=== PATIENT | male | born 1995 | race Caucasian/White ===

== ENCOUNTER 2023-11-22 11:16 | Emergency (ER) | payer OTHER, SELFPAY ==
[2023-11-22] VITALS (10 sets, daily range): BP systolic 129–159; BP diastolic 60–113; PULSE 101–125; RESP 12–24; TEMP 37.7; O2SAT 96–100; BMI 30.5
--- NOTE | 2023-11-22 11:37 | DI.RAD.S_ITS ---
PROCEDURE: XR CHEST 1V INDICATIONS: Shortness of breath TECHNIQUE: One view of the chest was acquired. COMPARISON: None. FINDINGS: Surgical changes and devices: None. Lungs and pleura: Moderate size airspace opacity in left lower lung field is seen extending to left infrahilar region. Right lung is clear. No pleural effusions or pneumothorax. Mediastinum: Mediastinal contours appear normal. Heart size is normal. Bones and chest wall: No suspicious bony lesions. Overlying soft tissues appear unremarkable. IMPRESSION: Moderate size left lower lobe infiltrate. No pleural effusion or pneumothorax. Dictated by: Rajinder Chan M.D. on 11/22/2023 at 12:18 Approved by: Rajinder Chan M.D. on 11/22/2023 at 12:19
[2023-11-22 12:09] LABS: Add Manual Diff / Slide Review NO; Basophils Absolute Auto 0 /uL (0-100); Basophils Percent Auto 0.5 % (0-2); Eosinophils Absolute Auto 100 /uL (0-450); Eosinophils Percent Auto 1.5 % (2-4); Hematocrit 44.2 % (41-53); Hemoglobin 15.2 g/dL (13.5-17.5); Lymphocytes Absolute Auto 1700 /uL (1100-4500); Lymphocytes Percent Auto 22.3 % (25-40); Mean Corpuscular HGB Conc 34.3 % (30-36); Mean Corpuscular Hemoglobin 28.1 PG (26-34); Mean Corpuscular Volume 81.9 fL (80-100); Monocytes Absolute Auto 1000 /uL (0-900); Monocytes Percent Auto 13.3 % (3-14); Neutrophils Absolute Auto 4800 /uL (1500-7000); Neutrophils Percent Auto 62.4 % (50-75); Platelet Count 206 X10^3/uL (150-400); Red Cell Distribution Width 14.3 % (11.6-14.8); White Blood Cell Count 7.6 X10^3/uL (4.5-11.0)
[2023-11-22 12:11] LABS: Alanine Aminotransferase 43 IU/L (<50); Albumin 4.9 g/dL (3.5-5.0); Albumin Globulin Ratio 1.5 (1.0-2.8); Alkaline Phosphatase 72 U/L (38-126); Aspartate Aminotransferase 37 IU/L (17-59); BUN Creatinine Ratio 12.9 (6-22); Bilirubin Total 0.7 mg/dL (0.2-1.3); Blood Urea Nitrogen 12 mg/dL (9-20); Calcium 9.5 mg/dL (8.4-10.2); Carbon Dioxide 20 mmol/L (22-32); Chloride 107 mmol/L (98-107); Estimated Glomerular Filt Rate > 60 mL/min (>60); Globulin 3.3 g/dL (1.7-4.1); Glucose 120 mg/dL (70-100); HEMOLYSIS < 15 (0-50); Potassium 3.7 mmol/L (3.4-5.1); Sodium 138 mmol/L (137-145); Total Protein 8.2 g/dL (6.3-8.2)
[2023-11-22 12:23] LABS: NT-proBNP (BNP-Adult 18+) 55 pg/mL (<125); Troponin I 0.084 ng/mL (0.01-0.034)
[2023-11-22 12:35] LABS: Influenza A - CEPHEID Flu A NEGATIVE (NEGATIVE); Influenza B - CEPHEID Flu B NEGATIVE (NEGATIVE); Respiratory Syncytial Virus Negative (Negative)
--- NOTE | 2023-11-22 12:46 | EKG_ITS ---
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 Electronically Signed On 11-25-2023 9:15:08 PDT by Giorgio Peralta
[2023-11-22 12:52] LABS: COVID-19 CEPHEID 4-PLEX PCR Negative (Negative)
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
[2023-11-22 13:12] LABS: D Dimer 656 ng/ml (<500)
[2023-11-22] MEDS: ALBUTEROL 2.5 MG/3 ML NEB (ADULT) INH (13:18)
[2023-11-22] MEDS: SODIUM CHLORIDE 0.9% 1,000 ML 1000 ML IV (13:19)
[2023-11-22] MEDS: KETOROLAC 30 MG/ML VIAL 15 MG IV (13:19)
--- NOTE | 2023-11-22 13:36 | EKG_ITS ---
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
[2023-11-22 14:02] LABS: Creatine Kinase 150 U/L (55-170)
[2023-11-22 14:16] LABS: Troponin I 0.081 ng/mL (0.01-0.034)
[2023-11-22 15:29] LABS: C-Reactive Protein Quant 4.9 mg/dL (<1.0)
[2023-11-22 15:37] LABS: Erythrocyte Sedimentation Rate 11 MM/HR (0-15)
== END 2023-11-22 15:28 | disposition home or self-care (01) ==
PROVIDERS: Emergency Provider Emergency Medicine
DX: J18.9 Pneumonia, unspecified organism (principal); R07.89 Other chest pain; R06.02 Shortness of breath; Z11.52 Encounter for screening for COVID-19
CPT/HCPCS: 0241U; 36415; 71045; 80053; 82550; 83605; 83880; 84484; 85025; 85379; 85610; 85651; 86140; 87040; 93005; 94640; 96361; 96374; 99284; J1885; J7613

== ENCOUNTER 2023-11-24 07:48 | Emergency (ER) | payer OTHER, SELFPAY ==
[2023-11-24] VITALS (8 sets, daily range): BP systolic 116–149; BP diastolic 63–82; PULSE 82–113; RESP 16–18; TEMP 36.3; O2SAT 96–100; BMI 29.7
--- NOTE | 2023-11-24 08:06 | DI.RAD.S_ITS ---
PROCEDURE: XR CHEST 1V INDICATIONS: chest pain TECHNIQUE: One view of the chest was acquired. COMPARISON: [facility], CR, XR CHEST 1V, 11/22/2023, 12:02. FINDINGS: Surgical changes and devices: None. Lungs and pleura: Focal opacity in the left lung base decreased in size without resolution. No pleural effusions or pneumothorax. Mediastinum: Mediastinal contours appear normal. Heart size is normal. Bones and chest wall: No suspicious bony lesions. Overlying soft tissues appear unremarkable. IMPRESSION: Left lower lobe pneumonia with decreased size of lung infiltrate. Dictated by: Janeen Armendariz MD, PhD on 11/24/2023 at 9:26 Approved by: Janeen Armendariz MD, PhD on 11/24/2023 at 9:27
--- NOTE | 2023-11-24 08:15 | ED_ITS ---
HPI - Chest Pain General Chief Complaint: Chest Pain Stated Complaint: says something wrong w his heart Time Seen by Provider: 11/24/23 08:14 History of Present Illness HPI narrative: 28-year-old male presents for persistent chest pain and heaviness. Seen 2 days previously for body aches, shortness of breath, chest pain. Patient diagnosed with left-sided infiltrate. Also found mildly elevated troponins, thought to be secondary to myocarditis. Patient states that he was called yesterday by the ER physician to return to the emergency department, but he felt like he was improving yesterday and did not come back in. Today he states he feels worse than when he came in the 1st time and decided to come back in for evaluation. Reports persistently elevated heart rate at home between 110-130 beats per minute. Related Data Previous Rx's Medication Instructions Recorded albuterol sulfate 90 mcg/actuation 2 puff inhalation Q4-6H PRN 11/22/23 aerosol inhaler shortness of breath or wheezing #8.5 grams amoxicillin 500 mg capsule 1,000 mg (2 x 500 mg) PO TID 5 11/22/23 days #30 caps doxycycline hyclate 100 mg capsule 100 mg PO BID #10 caps 11/22/23 colchicine 0.6 mg tablet 0.6 mg PO BID 3 months #180 tabs 11/24/23 Allergies Allergy/AdvReac Type Severity Reaction Status Date / Time No Known Drug Allergies Allergy Verified 11/22/23 11:37 Patient History Social History Smoking Status: Former smoker Smoking Status: Former smoker Substance Use Type: does not use Exam Initial Vital Signs Initial Vital Signs: Vital Signs Temperature 97.4 F L 11/24/23 08:02 Pulse Rate 103 H 11/24/23 08:02 Respiratory Rate 18 11/24/23 08:02 Blood Pressure 149/74 H 11/24/23 08:02 Pulse Oximetry 100 11/24/23 08:02 Oxygen Delivery Method Room Air 11/24/23 08:02 Const: Awake, alert, ill-appearing, nontoxic Cardiac: Tachycardia, regular rhythm RESP: unlabored, speaking in complete sentences without dyspnea, no wheezing MSK: Atraumatic, full range of motion, pulses equal, no edema Skin: Warm, Dry, intact, no rashes Neuro: AO x3, CN II-XII grossly intact, moves all extremities Course Orders Ordered: Discontinued Medications Aspirin (Aspirin 81 Mg Chew Tab) 324 mg PO NOW ONE Stop: 11/24/23 08:07 Last Admin: 11/24/23 08:48 Dose: 324 mg Documented By: Sodium Chloride (Normal Saline 0.9%) 1,000 mls @ 1,000 mls/hr IV BOLUS ONE Stop: 11/24/23 09:26 Last Infusion: 11/24/23 11:06 Dose: Infused Documented By: Admin: 11/24/23 08:48 Dose: 1,000 mls/hr Documented By: Ketorolac Tromethamine (Ketorolac 30 Mg/Ml Vial) 15 mg IV NOW ONE Stop: 11/24/23 08:28 Last Admin: 11/24/23 08:48 Dose: 15 mg Documented By: Vital Signs Vital signs: Vital Signs - 8 hr 11/24/23 08:02 11/24/23 08:22 11/24/23 08:38 Temperature 97.4 F L Pulse Rate 103 H 113 H 103 H Respiratory Rate 18 Blood Pressure 149/74 H Pulse Oximetry 100 99 99 Oxygen Delivery Method Room Air 11/24/23 08:39 11/24/23 08:39 11/24/23 09:00 Temperature Pulse Rate 103 H 97 H Respiratory Rate Blood Pressure 120/82 Pulse Oximetry 99 97 Oxygen Delivery Method Room Air Room Air 11/24/23 09:00 11/24/23 10:30 11/24/23 11:30 Temperature Pulse Rate 82 91 H Respiratory Rate 18 16 Blood Pressure 121/63 120/74 135/70 Pulse Oximetry 96 Oxygen Delivery Method Room Air MDM - Chest Pain Differential Diagnosis Differential diagnosis: Likely fracture of rib, pneumothorax and stable angina Lab Data 11/24/23 08:10 11/24/23 08:10 Labs: Lab Results 11/24/23 Range/Units 08:10 WBC 7.2 (4.5-11.0) X10^3/uL RBC 5.06 (4.5-5.9) X10^6/uL Hgb 14.0 (13.5-17.5) g/dL Hct 41.9 (41-53) % MCV 82.9 (80-100) fL MCH 27.7 (26-34) PG MCHC 33.5 (30-36) % RDW 14.1 (11.6-14.8) % Plt Count 205 (150-400) X10^3/uL Neut % (Auto) 45.2 L (50-75) % Lymph % (Auto) 32.5 (25-40) % [place] % (Auto) 17.7 H (3-14) % Eos % (Auto) 4.2 H (2-4) % Baso % (Auto) 0.4 (0-2) % Neut # (Auto) 3300 (5203-1732) /uL Lymph # (Auto) 2300 (1594-3013) /uL [place] # (Auto) 1300 H (0-900) /uL Eos # (Auto) 300 (0-450) /uL Baso # (Auto) 0 (0-100) /uL PT 11.4 (9.4-12.5) SECONDS INR 1.0 (0.9-1.3) APTT 37 H (25.1-36.5) SECONDS Sodium 137 (137-145) mmol/L Potassium 4.3 (3.4-5.1) mmol/L Chloride 105 (98-107) mmol/L Carbon Dioxide 24 (22-32) mmol/L BUN 11 (9-20) mg/dL Creatinine 0.89 (0.66-1.25) mg/dL Estimated GFR > 60 (>60) mL/min BUN/Creatinine Ratio 12.4 (6-22) Glucose 125 H (70-100) mg/dL Calcium 9.5 (8.4-10.2) mg/dL Magnesium 2.2 (1.6-2.3) mg/dL Total Bilirubin 0.8 (0.2-1.3) mg/dL AST 43 (17-59) IU/L ALT 42 (<50) IU/L Alkaline Phosphatase 67 (38-126) U/L Total Creatine Kinase 462 H D (55-170) U/L Troponin I 1.490 H* (0.01-0.034) ng/mL NT-Pro-B Natriuret Pep 184 H (<125) pg/mL Total Protein 7.9 (6.3-8.2) g/dL Albumin 4.5 (3.5-5.0) g/dL Globulin 3.4 (1.7-4.1) g/dL Albumin/Globulin Ratio 1.3 (1.0-2.8) Lipase 43 (23-300) U/L Imaging Data Chest x-ray: Radiologist's Impression: PROCEDURE: XR CHEST 1V INDICATIONS: chest pain TECHNIQUE: One view of the chest was acquired. COMPARISON: [facility], , XR CHEST 1V, 11/22/2023, 12:02. FINDINGS: Surgical changes and devices: None. Lungs and pleura: Focal opacity in the left lung base decreased in size without resolution. No pleural effusions or pneumothorax. Mediastinum: Mediastinal contours appear normal. Heart size is normal. Bones and chest wall: No suspicious bony lesions. Overlying soft tissues appear unremarkable. IMPRESSION: Left lower lobe pneumonia with decreased size of lung infiltrate. Dictated by: Janeen Armendariz MD, PhD on 11/24/2023 at 9:26 Approved by: Janeen Armendariz MD, PhD on 11/24/2023 at 9:27 CT scan - chest: Radiologist's Impression: PROCEDURE: CT ANGIO CHEST PE PROTOCOL INDICATIONS: ELEVATED DIMER, SOB, L INFILTRATE TECHNIQUE: After the administration of intravenous contrast, 2 mm thick sections acquired from the pulmonary apices to the posterior costophrenic angles. 3-dimensional maximum intensity projection (MIP) coronal and sagittal reformats were then acquired through the thorax. For radiation dose reduction, the following was used: automated exposure control, adjustment of mA and/or kV according to patient size. COMPARISON: [facility], XR CHEST 1V, 11/24/2023, 8:15. [facility], XR CHEST 1V, 11/22/2023, 12:02. FINDINGS: Image quality: Diagnostic. Pulmonary arteries: Pulmonary arteries are normal in size, and demonstrate no intraluminal filling defects to suggest central pulmonary embolism. Lower Neck: No enlarged lymph nodes. Thyroid: No thyroid nodules which require sonographic follow up, per consensus guidelines. Axillae: No enlarged lymph nodes. Chest Wall: Unremarkable. Bones: Unremarkable. Lungs and Pleura: No pneumothorax or pleural effusions. Patchy consolidation in the left lower lobe. Heart: Heart size is normal. No pericardial effusion. Thoracic Vessels: No aortic aneurysm. Mediastinum and [place]: No enlarged lymph nodes. Esophagus: No wall thickening. No hiatal hernia. Upper Abdomen: Visualized upper abdomen solid organs and bowel loops appear normal. IMPRESSION: Pulmonary embolus or aortic dissection. Left lower lobe pneumonia. Dictated by: Janeen Armendariz MD, PhD on 11/24/2023 at 9:27 Approved by: Janeen Armendariz MD, PhD on 11/24/2023 at 9:31 US - DVT: Radiologist's Impression: [facility] : : [address] [place] [address]. : : [place] : : [id number] : : Phone: [phone] Echocardiogram Report + + :Name: CLARY EISENBERG Study Date: 11/24/2023 Height: 67 in : :[facility] ReadingLocation: Weight: 190 lb : : Gender: Male BSA: 2.0 m2 : :: 1995 Age: 28 yrs BP: 120/74 mmHg: :Reason For Study: ELEVATED TROPONINS : :Ordering Physician: KEL : :YULIET Performed By: Li King : :Referring: YULIET SIMMONS : + + Interpretation Summary The ejection fraction is estimated to be 55-60%. Diastolic parameters suggest probable normal left ventricular diastolic function and normal filling pressures. The right ventricle is normal in size and function. The right ventricular systolic pressure is estimated to be at least 21 mmHg based on an estimated right atrial pressure of 3 mm Hg. No significant valvular abnormality. Procedure: A two-dimensional transthoracic echocardiogram with color flow and Doppler was performed. The study quality was technically adequate. There is no prior echocardiogram noted for this patient. The patient was in sinus rhythm with heart rates between 77-90 bpm during the exam. Left Ventricle: The left ventricle is normal in size and wall thickness. The ejection fraction is estimated to be 55-60%. Left ventricular global longitudinal strain average is -18.7%. There are no obvious focal wall motion abnormalities noted but poor endocardial definition reduces the sensitivity for the detection of such. Diastolic parameters suggest probable normal left ventricular diastolic function and normal filling pressures. Right Ventricle: The right ventricle is normal in size and function. Atria: The left atrial size is normal. Right atrial size is normal. There is no Doppler evidence for an interatrial shunt. Mitral Valve: The mitral valve is normal in structure and function. There is trace mitral regurgitation. Aortic Valve: The aortic valve is trileaflet. The aortic valve opens well. There is no aortic valve stenosis. No aortic regurgitation is present. Tricuspid Valve: The tricuspid valve is normal in structure and function. There is trace tricuspid regurgitation. The right ventricular systolic pressure is estimated to be at least 21 mmHg based on an estimated right atrial pressure of 3 mm Hg. Pulmonic Valve: The pulmonic valve leaflets are thin and pliable; valve motion is normal. There is no pulmonic valvular regurgitation. Great Vessels: The aortic root is normal size. The dimensions of the ascending aorta are normal. The IVC is of normal diameter and collapses greater than 50% with a sniff. This suggests a low right atrial pressure of 3 mm Hg. Pericardium/ Pleura There is no pericardial effusion. There is no pleural effusion. MMode/2D Measurements & Calculations LVIDd: 5.1 cm LVOT diam: 2.2 cm LVIDs: 3.6 cm Ao root diam: 3.0 cm FS: 30.3 % asc Aorta Diam: 2.8 cm IVSd: 0.72 cm Ao Arch Diam (Prox Trans): 2.5 cm LVPWd: 0.91 cm LV adan. diameter/BSA (cm/m^2): 2.6 LV sys. diameter/BSA (cm/m^2): 1.8 LA A2 area: 15.7 cm2 RA long axis: 4.4 cm LA A4 area: 15.6 cm2 RA area: 12.7 cm2 LA length (vol): 4.8 cm RA vol: 31.4 ml LA vol: 43.1 ml RA : 15.9 ml/m2 LA vol index: 21.8 ml/m2 IVC diam: 2.0 cm RVD1 (basal): 3.3 cm RVD2 (mid): 2.9 cm TAPSE: 1.8 cm Doppler Measurements & Calculations Ao V2 max: 121.2 cm/sec LVOT Max Haroldo: 74.2 cm/sec Ao V2 mean: 86.3 cm/sec LV V1 max P.2 mmHg Ao max P.9 mmHg LV V1 VTI: 13.1 cm Ao mean P.4 mmHg BIBIANA(I,D): 2.4 cm2 Ao V2 VTI: 21.0 cm BIBIANA(V,D): 2.4 cm2 sev ratio: 0.62 BIBIANA indexed to BSA (cm^2/m^2): 1.2 MV E max haroldo: 79.6 cm/sec TR max haroldo: 209.0 cm/sec MV A max haroldo: 51.7 cm/sec TR max P.5 mmHg MV E/A: 1.5 PA V2 max: 114.6 cm/sec Med Peak E' Haroldo: 12.4 cm/sec PA V2 mean: 77.6 cm/sec E/E' med: 6.4 PA mean P.7 mmHg Lat Peak E' Haroldo: 17.1 cm/sec PA pr(Accel): 32.8 mmHg E/E' lat: 4.7 E/e' average: 5.5 MV dec time: 0.17 sec SV(LVOT): 50.9 ml Reading Physician:AM ECG Data Interpretation: Sinus tachycardia, 107 beats per minute, normal NC, no ST T wave changes, no STEMI MDM Narrative Medical decision making narrative: Patient presenting for persistent chest pain and shortness of breath. Recently diagnosed with pneumonia and borderline troponins. EKG sinus tachycardia without concerning ST T wave elevations or depressions. Patient initially tachycardic, however after receiving Toradol and IV fluids heart rate decreased to 80 beats per minute, normal sinus rhythm. Repeat labs show troponin is now 1.49, up from 0.081. Call placed to Dr. Ayers of Cardiology, who recommended NSAIDs and colchicine, as well as obtaining a echocardiogram. Patient will likely need to stay for observation to ensure that troponins are responding to NSAID treatment. Echocardiogram notified, they will be able to see the patient around 11:00 a.m.. Patient agreeable to wait for echocardiogram at this time. Echocardiogram shows no pericardial effusion, normal ejection fraction, normal wall motion. Patient's heart rate has decreased after receiving IV fluids and he was resting comfortably. We discussed case with Dr. Ayers of cardiology. She states that now that we know that patient has no pericardial effusion and normal ejection fraction he can be treated conservatively with colchicine and does not need to be admitted to the hospital. Recommended 0.6 mg of colchicine b.i.d. for 3 months. If pain is severe he may take high-dose ibuprofen, 600 mg p.o. t.i.d., however she recommends that he take a PPI with this medication. Patient informed of all lab and imaging findings as well as cardiology recommendations. Patient states that he was relieved that he was not have to stay in the hospital. He was in agreement with medication plan. He states that his pain is overall well controlled at this time. Patient counseled to return if his symptoms do not improve or worsen. Cardiology follow up recommended. Discharge Plan Departure Patient Disposition: Home Clinical Impression: Acute myopericarditis Instructions: DI for Pericarditis Activity Restrictions/Additional Instructions: Continue to take your antibiotics as prescribed. Your echocardiogram showed that you have normal heart function today, which is reassuring. You did have some elevation in your heart enzymes, likely from the inflammation and irritation. Cardiology recommends that you take colchicine twice daily for the next 3 months. This has been sent to the [facility] in [place]. If you have chest pain then it was recommended to take high-dose ibuprofen, 600 mg as needed up to 3 times daily. If you take high-dose ibuprofen please take an antacid such as omeprazole or Protonix to avoid irritating her stomach. Follow up with Cardiology. If you notice worsening shortness of breath, leg swelling, or are not improving please return to the emergency department for repeat evaluation. Prescriptions: New colchicine 0.6 mg tablet 0.6 mg PO BID 90 Days Qty: 180 0RF No Action albuterol sulfate 90 mcg/actuation HFA aerosol inhaler 2 puff INHALATION Q4-6H PRN (Reason: shortness of breath or wheezing) Qty: 8.5 0RF amoxicillin 500 mg capsule 1,000 mg PO TID 5 Days Qty: 30 0RF doxycycline hyclate 100 mg capsule 100 mg PO BID Qty: 10 0RF Stand Alone Forms: Patient Portal/API
--- NOTE | 2023-11-24 08:17 | EKG_ITS ---
[place] [address] [address] [place] [address] Test Date: 2023-11-24 Pat Name: Samuel Tirado Department: Room: Gender: Male [employer]: : 1995 Requested By: Order Number: [id number] Reading MD: Giorgio Peralta Measurements Intervals [place] Rate: 107 P: 68 FL: 154 QRS: 45 QRSD: 80 T: 60 QT: 322 QTc: 429 Interpretive Statements Sinus tachycardia Electronically Signed On 11-25-2023 16:48:54 PDT by Giorgio Peralta
[2023-11-24 08:23] LABS: Add Manual Diff / Slide Review NO; Basophils Absolute Auto 0 /uL (0-100); Basophils Percent Auto 0.4 % (0-2); Eosinophils Absolute Auto 300 /uL (0-450); Eosinophils Percent Auto 4.2 % (2-4); Hematocrit 41.9 % (41-53); Lymphocytes Absolute Auto 2300 /uL (1100-4500); Lymphocytes Percent Auto 32.5 % (25-40); Mean Corpuscular HGB Conc 33.5 % (30-36); Mean Corpuscular Hemoglobin 27.7 PG (26-34); Mean Corpuscular Volume 82.9 fL (80-100); Monocytes Absolute Auto 1300 /uL (0-900); Monocytes Percent Auto 17.7 % (3-14); Neutrophils Absolute Auto 3300 /uL (1500-7000); Neutrophils Percent Auto 45.2 % (50-75); Platelet Count 205 X10^3/uL (150-400); Red Blood Cell Count 5.06 X10^6/uL (4.5-5.9); Red Cell Distribution Width 14.1 % (11.6-14.8); White Blood Cell Count 7.2 X10^3/uL (4.5-11.0)
[2023-11-24 08:34] LABS: Prothrombin Time 11.4 SECONDS (9.4-12.5)
[2023-11-24 08:37] LABS: PTT Partial Thromboplastin Tim 37 SECONDS (25.1-36.5)
[2023-11-24 08:40] LABS: Alanine Aminotransferase 42 IU/L (<50); Albumin 4.5 g/dL (3.5-5.0); Albumin Globulin Ratio 1.3 (1.0-2.8); Alkaline Phosphatase 67 U/L (38-126); Aspartate Aminotransferase 43 IU/L (17-59); BUN Creatinine Ratio 12.4 (6-22); Bilirubin Total 0.8 mg/dL (0.2-1.3); Blood Urea Nitrogen 11 mg/dL (9-20); Calcium 9.5 mg/dL (8.4-10.2); Carbon Dioxide 24 mmol/L (22-32); Chloride 105 mmol/L (98-107); Creatine Kinase 462 U/L (55-170); Estimated Glomerular Filt Rate > 60 mL/min (>60); Globulin 3.4 g/dL (1.7-4.1); Glucose 125 mg/dL (70-100); HEMOLYSIS < 15 (0-50); Lipase 43 U/L (23-300); Magnesium 2.2 mg/dL (1.6-2.3); Potassium 4.3 mmol/L (3.4-5.1); Sodium 137 mmol/L (137-145); Total Protein 7.9 g/dL (6.3-8.2)
[2023-11-24] MEDS: SODIUM CHLORIDE 0.9% 1,000 ML 1000 ML IV (08:48)
[2023-11-24] MEDS: KETOROLAC 30 MG/ML VIAL 15 MG IV (08:48)
[2023-11-24] MEDS: ASPIRIN 81 MG CHEW TAB 324 MG PO (08:48)
[2023-11-24 08:51] LABS: NT-proBNP (BNP-Adult 18+) 184 pg/mL (<125)
--- NOTE | 2023-11-24 09:07 | DI.ECHO.S_ITS ---
[facility]+ [facility] : : [address] : : [place] : : [address] : : Phone: [phone] Echocardiogram Report + + :Name: CLARY EISENBERG Study Date: 11/24/2023 Height: 67 in : :Hospital ReadingLocation: Weight: 190 lb : : Gender: Male BSA: 2.0 m2 : :: 1995 Age: 28 yrs BP: 120/74 mmHg: :Reason For Study: ELEVATED TROPONINS : :Ordering Physician: KEL, : :JIM Performed By: Li King : :Referring: JIM BEGUM : + + Interpretation Summary The ejection fraction is estimated to be 55-60%. Diastolic parameters suggest probable normal left ventricular diastolic function and normal filling pressures. The right ventricle is normal in size and function. The right ventricular systolic pressure is estimated to be at least 21 mmHg based on an estimated right atrial pressure of 3 mm Hg. No significant valvular abnormality. Procedure: A two-dimensional transthoracic echocardiogram with color flow and Doppler was performed. The study quality was technically adequate. There is no prior echocardiogram noted for this patient. The patient was in sinus rhythm with heart rates between 77-90 bpm during the exam. Left Ventricle: The left ventricle is normal in size and wall thickness. The ejection fraction is estimated to be 55-60%. Left ventricular global longitudinal strain average is -18.7%. There are no obvious focal wall motion abnormalities noted but poor endocardial definition reduces the sensitivity for the detection of such. Diastolic parameters suggest probable normal left ventricular diastolic function and normal filling pressures. Right Ventricle: The right ventricle is normal in size and function. Atria: The left atrial size is normal. Right atrial size is normal. There is no Doppler evidence for an interatrial shunt. Mitral Valve: The mitral valve is normal in structure and function. There is trace mitral regurgitation. Aortic Valve: The aortic valve is trileaflet. The aortic valve opens well. There is no aortic valve stenosis. No aortic regurgitation is present. Tricuspid Valve: The tricuspid valve is normal in structure and function. There is trace tricuspid regurgitation. The right ventricular systolic pressure is estimated to be at least 21 mmHg based on an estimated right atrial pressure of 3 mm Hg. Pulmonic Valve: The pulmonic valve leaflets are thin and pliable; valve motion is normal. There is no pulmonic valvular regurgitation. Great Vessels: The aortic root is normal size. The dimensions of the ascending aorta are normal. The IVC is of normal diameter and collapses greater than 50% with a sniff. This suggests a low right atrial pressure of 3 mm Hg. Pericardium/ Pleura There is no pericardial effusion. There is no pleural effusion. MMode/2D Measurements & Calculations LVIDd: 5.1 cm LVOT diam: 2.2 cm LVIDs: 3.6 cm Ao root diam: 3.0 cm FS: 30.3 % asc Aorta Diam: 2.8 cm IVSd: 0.72 cm Ao Arch Diam (Prox Trans): 2.5 cm LVPWd: 0.91 cm LV adan. diameter/BSA (cm/m^2): 2.6 LV sys. diameter/BSA (cm/m^2): 1.8 LA A2 area: 15.7 cm2 RA long axis: 4.4 cm LA A4 area: 15.6 cm2 RA area: 12.7 cm2 LA length (vol): 4.8 cm RA vol: 31.4 ml LA vol: 43.1 ml RA : 15.9 ml/m2 LA vol index: 21.8 ml/m2 IVC diam: 2.0 cm RVD1 (basal): 3.3 cm RVD2 (mid): 2.9 cm TAPSE: 1.8 cm Doppler Measurements & Calculations Ao V2 max: 121.2 cm/sec LVOT Max Haroldo: 74.2 cm/sec Ao V2 mean: 86.3 cm/sec LV V1 max P.2 mmHg Ao max P.9 mmHg LV V1 VTI: 13.1 cm Ao mean P.4 mmHg BIBIANA(I,D): 2.4 cm2 Ao V2 VTI: 21.0 cm BIBIANA(V,D): 2.4 cm2 sev ratio: 0.62 BIBIANA indexed to BSA (cm^2/m^2): 1.2 MV E max haroldo: 79.6 cm/sec TR max haroldo: 209.0 cm/sec MV A max haroldo: 51.7 cm/sec TR max P.5 mmHg MV E/A: 1.5 PA V2 max: 114.6 cm/sec Med Peak E' Haroldo: 12.4 cm/sec PA V2 mean: 77.6 cm/sec E/E' med: 6.4 PA mean P.7 mmHg Lat Peak E' Haroldo: 17.1 cm/sec PA pr(Accel): 32.8 mmHg E/E' lat: 4.7 E/e' average: 5.5 MV dec time: 0.17 sec SVLVOT): 50.9 ml Reading Physician:ROSA
== END 2023-11-24 12:48 | disposition home or self-care (01) ==
PROVIDERS: Emergency Provider Emergency Medicine
DX: I30.9 Acute pericarditis, unspecified (principal); R07.9 Chest pain, unspecified; R79.89 Other specified abnormal findings of blood chemistry; R06.02 Shortness of breath
CPT/HCPCS: 36415; 71045; 71275; 80053; 82550; 83690; 83735; 83880; 84484; 85025; 85610; 85730; 93005; 93306; 96361; 96374; 99284; J1885; Q9967

== ENCOUNTER 2023-11-30 14:36 | Emergency (ER) | payer OTHER, SELFPAY ==
[2023-11-30] VITALS (14 sets, daily range): BP systolic 125–163; BP diastolic 65–83; PULSE 97–129; RESP 15–22; TEMP 36.7; O2SAT 93–99; BMI 29.7
--- NOTE | 2023-11-30 14:47 | DI.RAD.S_ITS ---
PROCEDURE: XR CHEST 2V INDICATIONS: h/o L side infiltrate, worsening. TECHNIQUE: 2 views of the chest were acquired. COMPARISON: [facility], CR, XR CHEST 1V, 11/24/2023, 8:15. FINDINGS: Surgical changes and devices: None. Lungs and pleura: Lungs are clear. No pleural effusions or pneumothorax. Mediastinum: Mediastinal contours are normal. Heart size is normal. Bones and chest wall: No suspicious bony abnormalities. Soft tissues appear unremarkable. IMPRESSION: No acute cardiopulmonary pathology. Dictated by: Rajinder Chan M.D. on 11/30/2023 at 15:06 Approved by: Rajinder Chan M.D. on 11/30/2023 at 15:08
[2023-11-30] MEDS: ALBUTEROL/IPRATROPIUM 3 ML AMPUL INH (14:51)
--- NOTE | 2023-11-30 15:00 | ED_ITS ---
HPI - SOB/Dyspnea General Chief Complaint: Shortness of Breath/Dyspnea Stated Complaint: SOB was here last week w PNA Time Seen by Provider: 11/30/23 14:55 Source: patient Mode of arrival: Ambulatory Limitations: no limitations History of Present Illness HPI Narrative: Patient is a 28-year-old male recently diagnosed with pneumonia and myocarditis. He was seen evaluated twice last week here in the ED he had CT echocardiogram and chest x-ray done. He had elevated troponins. Cardiology was consulted who recommended NSAIDs and colchicine. Patient reports he has not felt any better. He continues to have chest pain he started having some diarrhea no nausea. He continues to have a dry nonproductive cough. He thought he was getting better with antibiotics but now he has not so sure. He feels like he is got fluid on his lungs he denies any lower extremity swelling. He was shortness of breath with exertion. And orthopnea Related Data Previous Rx's Medication Instructions Recorded albuterol sulfate 90 mcg/actuation 2 puff inhalation Q4-6H PRN 11/22/23 aerosol inhaler shortness of breath or wheezing #8.5 grams doxycycline hyclate 100 mg capsule 100 mg PO BID #10 caps 11/22/23 colchicine 0.6 mg tablet 0.6 mg PO BID 3 months #180 tabs 11/24/23 Allergies Allergy/AdvReac Type Severity Reaction Status Date / Time No Known Drug Allergies Allergy Verified 11/22/23 11:37 Patient History Social History Smoking Status: Former smoker Smoking Status: Former smoker Substance Use Type: does not use Exam Initial Vital Signs Initial Vital Signs: Vital Signs Pulse Rate 107 H 11/30/23 14:42 Pulse Oximetry 98 11/30/23 14:42 GENERAL: Alert 28-year-old male appears to not feel well and in no acute distress. HEENT: Head atraumatic,EOMI, pupils reactive, face symmetric, moist mucous membranes CARDIOVASCULAR: Regular rate and rhythm without murmurs, rubs or gallops. RESPIRATORY: Coarse breath sounds bilaterally ABDOMEN: Soft, nontender. Normoactive bowel sounds all 4 quadrants. No guarding or rebound. EXTREMITIES: Normal range of motion, no clubbing or edema. Neurovascularly intact NEUROLOGICAL: Alert and oriented x4.Normal gait and speech. SKIN: Warm, dry, no laceration, no petechiae, no rashes or lesions. Course Orders Ordered: ED Orders 11/30/23 14:46 EKG-12 Lead Stat 11/30/23 14:47 XR chest 2V Stat 11/30/23 14:50 Complete Blood Count AUTO DIFF Stat Comprehensive Metabolic Panel Stat Lactate (Lactic Acid) Stat Lipase Stat Magnesium Stat NT-proBNP (BNP-Adult 18+) Stat PTT Partial Thromboplastin Bao Stat Procalcitonin Stat Prothrombin Time INR Stat Troponin & CK Cardiac Panel Stat 11/30/23 14:53 Respiratory Panel (Film Array) Stat 11/30/23 15:20 Blood Culture Stat Discontinued Medications Albuterol (Albuterol 2.5 Mg/3 Ml Neb (Adult)) 2.5 mg INH NOW ONE Stop: 11/30/23 15:35 Last Admin: 11/30/23 15:43 Dose: 2.5 mg Documented By: MARIE Albuterol/Ipratropium (Albuterol/Ipratropium 3 Ml Ampul) 3 ml INH NOW ONE Stop: 11/30/23 14:49 Last Admin: 11/30/23 14:51 Dose: 3 ml Documented By: ALENA Methylprednisolone (Methylprednisolone 125 Mg/2 Ml Vial) 125 mg IV NOW ONE Stop: 11/30/23 15:35 Last Admin: 11/30/23 15:43 Dose: 125 mg Documented By: MARIE Vital Signs Vital signs: Vital Signs - 8 hr 11/30/23 14:42 11/30/23 14:43 11/30/23 14:43 Temperature Pulse Rate 107 H 120 H Respiratory Rate Blood Pressure 160/74 H Pulse Oximetry 98 99 Oxygen Delivery Method 11/30/23 14:45 11/30/23 14:45 11/30/23 14:52 Temperature 98.1 F Pulse Rate 108 H 109 H 129 H Respiratory Rate 22 20 Blood Pressure 160/74 H Pulse Oximetry 97 99 98 Oxygen Delivery Method Room Air Room Air 11/30/23 15:00 11/30/23 15:01 11/30/23 15:01 Temperature Pulse Rate 115 H 108 H Respiratory Rate 21 19 Blood Pressure 163/83 H Pulse Oximetry 99 99 Oxygen Delivery Method 11/30/23 15:15 11/30/23 15:30 11/30/23 15:30 Temperature Pulse Rate 112 H 101 H Respiratory Rate 15 15 Blood Pressure 142/65 H Pulse Oximetry 98 93 Oxygen Delivery Method Room Air 11/30/23 15:45 11/30/23 16:00 11/30/23 16:00 Temperature Pulse Rate 99 H 105 H Respiratory Rate 15 16 Blood Pressure 125/70 Pulse Oximetry 96 95 Oxygen Delivery Method 11/30/23 16:15 11/30/23 16:30 11/30/23 16:30 Temperature Pulse Rate 97 H 100 H Respiratory Rate 22 Blood Pressure 131/77 Pulse Oximetry 95 98 Oxygen Delivery Method 11/30/23 16:45 11/30/23 17:00 11/30/23 17:00 Temperature Pulse Rate 101 H 99 H Respiratory Rate 20 20 Blood Pressure 138/72 Pulse Oximetry 97 94 Oxygen Delivery Method Room Air MDM - SOB/Dyspnea Lab Data 11/30/23 14:50 11/30/23 14:50 Labs: Lab Results 11/30/23 11/30/23 Range/Units 14:50 14:53 WBC 8.1 (4.5-11.0) X10^3/uL RBC 5.10 (4.5-5.9) X10^6/uL Hgb 14.4 (13.5-17.5) g/dL Hct 42.2 (41-53) % MCV 82.7 (80-100) fL MCH 28.2 (26-34) PG MCHC 34.1 (30-36) % RDW 13.9 (11.6-14.8) % Plt Count 323 (150-400) X10^3/uL Neut % (Auto) 44.9 L (50-75) % Lymph % (Auto) 38.5 (25-40) % [place] % (Auto) 10.9 (3-14) % Eos % (Auto) 4.7 H (2-4) % Baso % (Auto) 1.0 (0-2) % Neut # (Auto) 3600 (9001-7485) /uL Lymph # (Auto) 3100 (1045-0616) /uL [place] # (Auto) 900 (0-900) /uL Eos # (Auto) 400 (0-450) /uL Baso # (Auto) 100 (0-100) /uL PT 10.7 (9.4-12.5) SECONDS INR 0.9 (0.9-1.3) APTT 40 H (25.1-36.5) SECONDS Sodium 139 (137-145) mmol/L Potassium 4.1 (3.4-5.1) mmol/L Chloride 107 (98-107) mmol/L Carbon Dioxide 25 (22-32) mmol/L BUN 13 (9-20) mg/dL Creatinine 0.94 (0.66-1.25) mg/dL Estimated GFR > 60 (>60) mL/min BUN/Creatinine Ratio 13.8 (6-22) Glucose 98 (70-100) mg/dL Lactate 1.1 (0.7-2.1) mmol/L Calcium 9.1 (8.4-10.2) mg/dL Magnesium 2.3 (1.6-2.3) mg/dL Total Bilirubin 0.5 (0.2-1.3) mg/dL AST 31 (17-59) IU/L ALT 33 (<50) IU/L Alkaline Phosphatase 66 (38-126) U/L Total Creatine Kinase 201 H D (55-170) U/L Troponin I < 0.012 (0.01-0.034) ng/mL NT-Pro-B Natriuret Pep < 20 (<125) pg/mL Total Protein 7.7 (6.3-8.2) g/dL Albumin 4.6 (3.5-5.0) g/dL Globulin 3.1 (1.7-4.1) g/dL Albumin/Globulin Ratio 1.5 (1.0-2.8) Lipase 58 (23-300) U/L Procalcitonin 0.063 (<0.5) ng/mL Chlamy pneumoniae PCR Not detected (Not Detect) Adenovirus (PCR) Not detected (Not Detect) B.parapertussis DNA PCR Not detected (Not Detecte) Coronavirus OC43 (PCR) Not detected (Not Detect) Coronavirus HKU1 (PCR) Not detected (Not Detect) Coronavirus 229E (PCR) Not detected (Not Detect) SARS-CoV-2 (PCR) Not detected (Not Detecte) Coronavirus NL63 (PCR) Not detected (Not Detect) Human Metapneumovir PCR Not detected (Not Detect) Influenza Type A (PCR) Not detected (Not Detect) Influenza Type B (PCR) Not detected (Not Detect) M. pneumoniae (PCR) Not detected (Not Detect) Parainfluenza 1 (PCR) Not detected (Not Detect) Parainfluenza 2 (PCR) Not detected (Not Detect) Parainfluenza 3 (PCR) Not detected (Not Detect) Parainfluenza 4 (PCR) Not detected (Not Detect) RSV (PCR) Not detected (Not Detect) Entero/Rhino (PCR) Not detected (Not Detect) Imaging Data Chest x-ray: Radiologist's Impression: PROCEDURE: XR CHEST 2V INDICATIONS: h/o L side infiltrate, worsening. TECHNIQUE: 2 views of the chest were acquired. COMPARISON: [facility], , XR CHEST 1V, 11/24/2023, 8:15. FINDINGS: Surgical changes and devices: None. Lungs and pleura: Lungs are clear. No pleural effusions or pneumothorax. Mediastinum: Mediastinal contours are normal. Heart size is normal. Bones and chest wall: No suspicious bony abnormalities. Soft tissues appear unremarkable. IMPRESSION: No acute cardiopulmonary pathology. Dictated by: Rajinder Chan M.D. on 11/30/2023 at 15:06 Approved by: Rajinder Chan M.D. on 11/30/2023 at 15:08 ECG Data Attestation: I personally reviewed and interpreted this ECG as follows: Prior ECG tracings: available for review Interpretation: Normal sinus rhythm rate 111 CT interval 142 QRS [address] changes MDM Narrative Medical decision making narrative: MDM CC: Shortness of breath Complicating co-morbidities: Recent pneumonia myocarditis Medical records reviewed: Previous ED visit, previous echocardiogram showed normal EF of 55-60% without elevated diastolic filling pressure Differential considered: Reactive airway disease, pneumonia, congestive heart failure, pulmonary embolism viral syndrome Exam documented above, pertinent findings include: Coarse breath sounds bilaterally mild conversational dyspnea not hypoxic Lab Test results independently reviewed as above. Pertinent findings: Troponin and BNP are negative WBC 8.1 hemoglobin 14 hematocrit 42 CMP normal electrolytes normal kidney function Lactate 1.1, procalcitonin 0.06 Independently reviewed EKG as above: No acute ischemic changes Imaging studies independently reviewed: Chest x-ray without any acute cardiopulmonary process Consultations: Dr. Peralta updated patient's symptoms test results discussion about how best to treat patient has a time with improving blood work no hypoxia chest x-ray negative seems reasonable to be discharged home and follow-up with Cardiology 16:50 Dr. Polanco cardiology updated patient's symptoms test results echocardiogram test results today states that he recommends continued colchicine and ibuprofen. Recommend following up with Dr. Ayers. At this time agrees no real need for admission or urgent/emergent cardiology follow-up Treatments: Albuterol DuoNeb Solu-Medrol Re-evaluations: Patient's breathing has gotten significantly better. Ambulation trial heart rate did in crease to about [id number] but O2 remained at 96- 97% Discussion: 28-year-old male with recent diagnosis mild carditis elevated troponin of 1.4 with a normal echocardiogram 6 days ago. Presenting again today with increasing shortness of breath but his wheezing and breathing did improve considerably with albuterol and duo nebs. He was given steroids Solu-Medrol over he is on colchicine and NSAIDs hesitant to add prednisone. Blood work has been reviewed overall reassuring he has a negative BNP and negative troponin his chest x-ray is clear he has no leukocytosis respiratory panel was also negative no evidence of infection. Cardiology and hospitalist were both consulted at this time there is no further treatment really to offer inpatient or outpatient. Unfortunately time is the only option. He did improve with some albuterol he already has an albuterol with a spacer. We discussed possibly a nebulizer however he declined stating that he will just use the albuterol inhaler. We discussed at length strict return precautions that if he is having significant shortness of breath he should return. At this time I see no need for further antibiotics or treatments. Patient was overall reassured. Discharge Plan Departure Patient Disposition: Home Clinical Impression: Acute myopericarditis, Reactive airway disease Instructions: DI for Reactive Airway Disease-Adult Activity Restrictions/Additional Instructions: *You have been diagnosed with reactive airway disease *What to do: At this time blood work and x-ray are overall reassuring. I do recommend that you call to follow-up with Cardiology Dr. Ayers *Continue to take medications as directed Albuterol inhaler 1-2 puffs every 4 hours, if you are requiring it more often than you need to come to the ED *Follow up with your primary care provider in 2-3 days or call [phone] *Return to ER if you should have increasing use of albuterol increasing shortness of breath chest pain or any new, worsening or concerning symptoms Prescriptions: No Action albuterol sulfate 90 mcg/actuation HFA aerosol inhaler 2 puff INHALATION Q4-6H PRN (Reason: shortness of breath or wheezing) Qty: 8.5 0RF doxycycline hyclate 100 mg capsule 100 mg PO BID Qty: 10 0RF colchicine 0.6 mg tablet 0.6 mg PO BID 90 Days Qty: 180 0RF Referrals: Tammy Ayers DO [Physician] - Stand Alone Forms: Patient Portal/API
--- NOTE | 2023-11-30 15:04 | EKG_ITS ---
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
[2023-11-30 15:08] LABS: Add Manual Diff / Slide Review NO; Basophils Absolute Auto 100 /uL (0-100); Eosinophils Absolute Auto 400 /uL (0-450); Eosinophils Percent Auto 4.7 % (2-4); Hematocrit 42.2 % (41-53); Hemoglobin 14.4 g/dL (13.5-17.5); Lymphocytes Absolute Auto 3100 /uL (1100-4500); Lymphocytes Percent Auto 38.5 % (25-40); Mean Corpuscular HGB Conc 34.1 % (30-36); Mean Corpuscular Hemoglobin 28.2 PG (26-34); Mean Corpuscular Volume 82.7 fL (80-100); Monocytes Absolute Auto 900 /uL (0-900); Monocytes Percent Auto 10.9 % (3-14); Neutrophils Absolute Auto 3600 /uL (1500-7000); Neutrophils Percent Auto 44.9 % (50-75); Platelet Count 323 X10^3/uL (150-400); Red Cell Distribution Width 13.9 % (11.6-14.8); White Blood Cell Count 8.1 X10^3/uL (4.5-11.0)
[2023-11-30 15:12] LABS: INR 0.9 (0.9-1.3); Prothrombin Time 10.7 SECONDS (9.4-12.5)
[2023-11-30 15:15] LABS: PTT Partial Thromboplastin Tim 40 SECONDS (25.1-36.5)
[2023-11-30 15:18] LABS: Lactate (Lactic Acid) 1.1 mmol/L (0.7-2.1)
[2023-11-30 15:19] LABS: Alanine Aminotransferase 33 IU/L (<50); Albumin 4.6 g/dL (3.5-5.0); Albumin Globulin Ratio 1.5 (1.0-2.8); Alkaline Phosphatase 66 U/L (38-126); Aspartate Aminotransferase 31 IU/L (17-59); BUN Creatinine Ratio 13.8 (6-22); Bilirubin Total 0.5 mg/dL (0.2-1.3); Blood Urea Nitrogen 13 mg/dL (9-20); Calcium 9.1 mg/dL (8.4-10.2); Carbon Dioxide 25 mmol/L (22-32); Chloride 107 mmol/L (98-107); Creatine Kinase 201 U/L (55-170); Estimated Glomerular Filt Rate > 60 mL/min (>60); Globulin 3.1 g/dL (1.7-4.1); Glucose 98 mg/dL (70-100); HEMOLYSIS < 15 (0-50); Lipase 58 U/L (23-300); Magnesium 2.3 mg/dL (1.6-2.3); Potassium 4.1 mmol/L (3.4-5.1); Sodium 139 mmol/L (137-145); Total Protein 7.7 g/dL (6.3-8.2)
[2023-11-30 15:31] LABS: NT-proBNP (BNP-Adult 18+) < 20 pg/mL (<125); Troponin I < 0.012 ng/mL (0.01-0.034)
[2023-11-30 15:37] LABS: Procalcitonin 0.063 ng/mL (<0.5)
[2023-11-30] MEDS: methylPREDNISolone 125 MG/2 ML VIAL IV (15:43)
[2023-11-30] MEDS: ALBUTEROL 2.5 MG/3 ML NEB (ADULT) INH (15:43)
[2023-11-30 15:59] LABS: Adenovirus Not Detected (Not Detect); B. parapertussis Not Detected (Not Detecte); Bordetella pertussis Not Detected (Not Detect); Chlamydophila pneumoniae Not Detected (Not Detect); Coronavirus 229E Not Detected (Not Detect); Coronavirus HKU1 Not Detected (Not Detect); Coronavirus NL 63 Not Detected (Not Detect); Coronavirus OC43 Not Detected (Not Detect); Human Metapneumovirus Not Detected (Not Detect); Human Rhinovirus/Enterovirus Not Detected (Not Detect); Influenza A Not Detected (Not Detect); Influenza B Not Detected (Not Detect); Mycoplasma pneumoniae Not Detected (Not Detect); Parainfluenza Virus 1 Not Detected (Not Detect); Parainfluenza Virus 2 Not Detected (Not Detect); Parainfluenza Virus 3 Not Detected (Not Detect); Parainfluenza Virus 4 Not Detected (Not Detect); Respiratory Syncytial Virus Not Detected (Not Detect); SARS- CoV-2 Not Detected (Not Detecte)
--- NOTE | 2023-11-30 16:32 | PC.NURSE ---
Ambulation trial performed with portable pulse ox. HR 105-110, SPO2 96-97% on room air. Pt reports feeling better with ambulation than when he first arrived to ED.
== END 2023-11-30 17:15 | disposition home or self-care (01) ==
PROVIDERS: Emergency Medicine; Emergency Provider Emergency Medicine
DX: I30.9 Acute pericarditis, unspecified (principal); J45.909 Unspecified asthma, uncomplicated; Z11.52 Encounter for screening for COVID-19
CPT/HCPCS: 36415; 71046; 80053; 82550; 82552; 83605; 83690; 83735; 83880; 84145; 84484; 85025; 85610; 85730; 87040; 87633; 93005; 94640; 96374; 99284; J2919; J7613

== ENCOUNTER 2023-12-02 15:16 | Observation (INO) | payer OTHER, SELFPAY ==
[2023-12-02] VITALS (26 sets, daily range): BP systolic 104–165; BP diastolic 59–88; PULSE 85–143; RESP 4–37; TEMP 31–37.4; O2SAT 93–98; BMI 29.7; BMI 28.5
--- NOTE | 2023-12-02 15:26 | EKG_ITS ---
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
--- NOTE | 2023-12-02 15:28 | DI.RAD.S_ITS ---
PROCEDURE: XR CHEST 1V INDICATIONS: Shortness of breath TECHNIQUE: One view of the chest was acquired. COMPARISON: [facility], CR, XR CHEST 2V, 11/30/2023, 14:49. FINDINGS: Surgical changes and devices: None. Lungs and pleura: Lungs are clear. No pleural effusions or pneumothorax. Mediastinum: Mediastinal contours appear normal. Heart size is normal. Bones and chest wall: No suspicious bony lesions. Overlying soft tissues appear unremarkable. IMPRESSION: No acute cardiopulmonary abnormality is seen. Dictated by: Ladan Singh M.D. on 12/02/2023 at 16:44 Approved by: Ladan Singh M.D. on 12/02/2023 at 16:44
[2023-12-02] MEDS: ALBUTEROL/IPRATROPIUM 3 ML AMPUL INH ×2 (15:41→16:10)
[2023-12-02 16:12] LABS: Add Manual Diff / Slide Review NO; Basophils Absolute Auto 100 /uL (0-100); Basophils Percent Auto 0.6 % (0-2); Eosinophils Absolute Auto 400 /uL (0-450); Eosinophils Percent Auto 3.6 % (2-4); Hematocrit 42.5 % (41-53); Hemoglobin 14.6 g/dL (13.5-17.5); Lymphocytes Absolute Auto 3100 /uL (1100-4500); Lymphocytes Percent Auto 31.3 % (25-40); Mean Corpuscular HGB Conc 34.3 % (30-36); Mean Corpuscular Hemoglobin 28.3 PG (26-34); Mean Corpuscular Volume 82.6 fL (80-100); Monocytes Absolute Auto 1000 /uL (0-900); Monocytes Percent Auto 9.7 % (3-14); Neutrophils Absolute Auto 5500 /uL (1500-7000); Neutrophils Percent Auto 54.8 % (50-75); Platelet Count 309 X10^3/uL (150-400); Red Blood Cell Count 5.15 X10^6/uL (4.5-5.9); Red Cell Distribution Width 14.2 % (11.6-14.8)
[2023-12-02 16:22] LABS: INR 0.9 (0.9-1.3); Prothrombin Time 10.7 SECONDS (9.4-12.5)
[2023-12-02 16:31] LABS: Lactate (Lactic Acid) 1.9 mmol/L (0.7-2.1)
[2023-12-02 16:32] LABS: Alanine Aminotransferase 33 IU/L (<50); Albumin 4.7 g/dL (3.5-5.0); Albumin Globulin Ratio 1.6 (1.0-2.8); Alkaline Phosphatase 73 U/L (38-126); Aspartate Aminotransferase 30 IU/L (17-59); BUN Creatinine Ratio 20.8 (6-22); Bilirubin Total 0.4 mg/dL (0.2-1.3); Blood Urea Nitrogen 20 mg/dL (9-20); Calcium 8.9 mg/dL (8.4-10.2); Carbon Dioxide 25 mmol/L (22-32); Chloride 108 mmol/L (98-107); Estimated Glomerular Filt Rate > 60 mL/min (>60); Globulin 2.9 g/dL (1.7-4.1); Glucose 118 mg/dL (70-100); HEMOLYSIS < 15 (0-50); Potassium 3.9 mmol/L (3.4-5.1); Sodium 142 mmol/L (137-145); Total Protein 7.6 g/dL (6.3-8.2)
[2023-12-02 16:43] LABS: NT-proBNP (BNP-Adult 18+) 36 pg/mL (<125); Troponin I < 0.012 ng/mL (0.01-0.034)
[2023-12-02] MEDS: ALBUTEROL 2.5 MG/3 ML NEB (ADULT) INH (16:46)
[2023-12-02] MEDS: methylPREDNISolone 125 MG/2 ML VIAL IV (17:57)
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
--- NOTE | 2023-12-02 18:28 | DI.CT.S_ITS ---
PROCEDURE: CT ANGIO CHEST PE PROTOCOL INDICATIONS: short of breath TECHNIQUE: After the administration of intravenous contrast, 2 mm thick sections acquired from the pulmonary apices to the posterior costophrenic angles. 3-dimensional maximum intensity projection (MIP) coronal and sagittal reformats were then acquired through the thorax. For radiation dose reduction, the following was used: automated exposure control, adjustment of mA and/or kV according to patient size. COMPARISON: [facility], CR, XR CHEST 1V, 12/02/2023, 16:00. [facility], CT, CT ANGIO CHEST PE PROTOCOL, 11/24/2023, 8:32. FINDINGS: Image quality: There is poor opacification of the distal portions of the right and left main pulmonary artery is and all distal pulmonary arteries. Streak artifact is seen related to leads outside of the patient. Pulmonary arteries: Poor opacification of the pulmonary arteries, and central or peripheral pulmonary embolus cannot be excluded. Lower Neck: No enlarged lymph nodes. Thyroid: No thyroid nodules which require sonographic follow up, per consensus guidelines. Axillae: No enlarged lymph nodes. Chest Wall: Unremarkable. Bones: Unremarkable. Lungs and Pleura: No pneumothorax or pleural effusions. Previously seen lateral left lower lobe consolidation has nearly resolved. There is mild residual tree-in-bud nodularity in this location. No new pulmonary opacity. Heart: Heart size is normal. No pericardial effusion. Thoracic Vessels: No aortic aneurysm. Mediastinum and Piedad: No enlarged lymph nodes. A small amount of air is seen in the left hilum tracking medially to the adjacent left portion of the mediastinum. Esophagus: No wall thickening. No hiatal hernia. Upper Abdomen: Visualized upper abdomen solid organs and bowel loops appear normal. IMPRESSION: 1. Essentially nondiagnostic exam. There is poor opacification of the main pulmonary arteries, and central or distal pulmonary embolus cannot be excluded. 2. Left lower lobe consolidation has nearly resolved with mild residual tree-in-bud nodularity suggesting resolving pneumonia. 3. Small amount of nonspecific free air is seen tracking along the left hilum into the left lateral portion of the mediastinum. No pneumothorax. Approved by: Cayden Martinez M.D. on 12/02/2023 at 20:15
[2023-12-02] MEDS: SODIUM CHLORIDE 0.9% 1,000 ML 1000 ML IV (18:33)
[2023-12-02] MEDS: ALBUTEROL 2.5 MG/3 ML NEB (ADULT) 20 MG INH (18:38)
[2023-12-02] MEDS: MAGNESIUM SULFATE 2 GM/50 ML PIGGYBACK IV (19:19)
[2023-12-02 19:24] LABS: Lactate (Lactic Acid) 2.2 mmol/L (0.7-2.1)
--- NOTE | 2023-12-02 19:35 | PC.NURSE ---
Increased work of breathing, pt says he can't keep going. MD in room. Pt placed on BiPap. RR improved. Taken to CT with RT and this RN on monitor.
[2023-12-02 19:43] LABS: Base Excess VBG -2.2 mmol/L (0-4); HCO3 VBG 24 mmol/L (24-28); PCO2 VBG 42.8 mmHg (45-50); PO2 VBG 41 mmHg (35-45); pH VBG 7.35 (7.33-7.43)
[2023-12-02 19:44] LABS: Fractionated Inspired Oxygen 21; Oxygen Saturation VBG 73 % (70-75); Total CO2 VBG 24 mmol/L (24-29)
[2023-12-02] MEDS: ACETAMINOPHEN IV 1,000 MG/100 ML VIAL 400 MG IV (20:02)
[2023-12-02] MEDS: KETOROLAC 30 MG/ML VIAL 15 MG IV (20:03)
[2023-12-02 20:46] LABS: Reflexed Lactate in 2 Hours Y
[2023-12-02 21:30] LABS: Lactate 2HR (Lactic Acid Rflx) 3.8 mmol/L (0.7-2.1)
--- NOTE | 2023-12-02 22:46 | RT ---
Patient transported to ICU via BIPAP. Patient is currently off of BIPAP, on room air, with no SOB per patient.
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
[2023-12-02] MEDS: ACETAMINOPHEN 325 MG TABLET 650 MG PO (23:25)
[2023-12-03] VITALS (13 sets, daily range): BP systolic 113–155; BP diastolic 52–75; PULSE 79–113; RESP 12–25; TEMP 36.6–36.9; O2SAT 91–96
[2023-12-03] MEDS: KETOROLAC 30 MG/ML VIAL 15 MG IV (00:01)
[2023-12-03 00:08] LABS: MRSA (Nasal) PCR NOT DETECTED (Not Detect)
[2023-12-03 01:54] LABS: Lactate (Lactic Acid) 3.6 mmol/L (0.7-2.1)
[2023-12-03 03:15] LABS: Reflexed Lactate in 2 Hours Y
--- NOTE | 2023-12-03 03:44 | PC.NURSE ---
Pt admitted from the ED on BiPAP at 21% FiO2. Able to remove BiPAP on arrival to floor without significant resp distress. Pt did have coughing fits overnight that are accompanied with chronic back pain and acute headache. Ketoralac given with minimal decrease in discomfort. HR between 95-130. Pt able to independently ambulate to bathroom.
[2023-12-03 04:10] LABS: Lactate 2HR (Lactic Acid Rflx) 2.1 mmol/L (0.7-2.1)
[2023-12-03 04:11] LABS: Add Manual Diff / Slide Review NO; Basophils Absolute Auto 0 /uL (0-100); Basophils Percent Auto 0.2 % (0-2); Eosinophils Absolute Auto 0 /uL (0-450); Eosinophils Percent Auto 0.2 % (2-4); Hematocrit 39.2 % (41-53); Hemoglobin 13.4 g/dL (13.5-17.5); Lymphocytes Absolute Auto 1100 /uL (1100-4500); Lymphocytes Percent Auto 9.8 % (25-40); Mean Corpuscular HGB Conc 34.1 % (30-36); Mean Corpuscular Hemoglobin 28.2 PG (26-34); Mean Corpuscular Volume 82.7 fL (80-100); Monocytes Absolute Auto 300 /uL (0-900); Monocytes Percent Auto 2.8 % (3-14); Neutrophils Absolute Auto 9900 /uL (1500-7000); Platelet Count 294 X10^3/uL (150-400); Red Blood Cell Count 4.74 X10^6/uL (4.5-5.9); White Blood Cell Count 11.4 X10^3/uL (4.5-11.0)
[2023-12-03 04:21] LABS: BUN Creatinine Ratio 22.4 (6-22); Blood Urea Nitrogen 15 mg/dL (9-20); Calcium 8.7 mg/dL (8.4-10.2); Carbon Dioxide 22 mmol/L (22-32); Chloride 107 mmol/L (98-107); Estimated Glomerular Filt Rate > 60 mL/min (>60); Glucose 144 mg/dL (70-100); HEMOLYSIS < 15 (0-50); Potassium 4.3 mmol/L (3.4-5.1); Sodium 137 mmol/L (137-145)
[2023-12-03] MEDS: methylPREDNISolone 125 MG/2 ML VIAL 80 MG IV (07:54)
--- NOTE | 2023-12-03 08:03 | PM.PN.1 ---
Subjective Subjective Interval history: Summary: 28-year-old male presented with asthma exacerbation and hypercarbia. On BiPAP overnight. Recent diagnosis pericarditis. Subjective: Exam Vital Signs (past 8 hours): - 12/03/23 00:31 12/03/23 00:31 12/03/23 01:00 Temperature Pulse Rate 113 H Respiratory Rate 25 H Blood Pressure 133/75 133/66 Pulse Oximetry 96 Oxygen Flow Rate 12/03/23 01:00 12/03/23 02:00 12/03/23 03:00 Temperature Pulse Rate 107 H 97 H 99 H Respiratory Rate 12 16 Blood Pressure 148/67 H Pulse Oximetry 95 96 91 Oxygen Flow Rate 0 0 0 12/03/23 03:00 12/03/23 03:30 12/03/23 03:30 Temperature Pulse Rate 86 Respiratory Rate Blood Pressure 133/57 L 113/52 L Pulse Oximetry 92 Oxygen Flow Rate 12/03/23 04:00 12/03/23 04:00 12/03/23 05:00 Temperature 98.5 F Pulse Rate 96 H 92 H Respiratory Rate 16 14 Blood Pressure 148/63 H Pulse Oximetry 93 94 Oxygen Flow Rate 0 0 12/03/23 05:00 12/03/23 06:00 12/03/23 06:00 Temperature Pulse Rate 79 Respiratory Rate 16 Blood Pressure 121/57 L 139/63 Pulse Oximetry 95 Oxygen Flow Rate 0 Fraction of Inspired Oxygen 21 SaO2/FiO2 Ratio 461 Oxygen Delivery Method BiPAP Oxygen Flow Rate 0 Narrative Exam Narrative: NAD, alert and oriented. Fluent speech. Lungs are clear, normal rate and effort. Heart is regular, no murmur gallop or rub. Abdomen is soft, non distended. Extremities are free of edema. Objective Imaging Chest x-ray: Radiologist's impression: No acute cardiopulmonary abnormality is seen. CT scan - chest: Radiologist's impression: 1. Essentially nondiagnostic exam. There is poor opacification of the main pulmonary arteries, and central or distal pulmonary embolus cannot be excluded. 2. Left lower lobe consolidation has nearly resolved with mild residual tree-in-bud nodularity suggesting resolving pneumonia. 3. Small amount of nonspecific free air is seen tracking along the left hilum into the left lateral portion of the mediastinum. No pneumothorax. Labs 12/03/23 03:44 12/03/23 03:44 Labs: Laboratory Results - last 24 hr 12/02/23 12/02/23 12/02/23 15:54 19:02 19:18 WBC 10.0 RBC 5.15 Hgb 14.6 Hct 42.5 MCV 82.6 MCH 28.3 MCHC 34.3 RDW 14.2 Plt Count 309 Neut % (Auto) 54.8 Lymph % (Auto) 31.3 [place] % (Auto) 9.7 Eos % (Auto) 3.6 Baso % (Auto) 0.6 Neut # (Auto) 5500 Lymph # (Auto) 3100 [place] # (Auto) 1000 H Eos # (Auto) 400 Baso # (Auto) 100 PT 10.7 INR 0.9 VBG pH 7.35 VBG pCO2 42.8 L VBG pO2 41 VBG HCO3 24 VBG Total CO2 24 VBG O2 Saturation 73 VBG Base Excess -2.2 L FiO2 21 Sodium 142 Potassium 3.9 Chloride 108 H Carbon Dioxide 25 BUN 20 Creatinine 0.96 Estimated GFR > 60 BUN/Creatinine Ratio 20.8 Glucose 118 H Lactate 1.9 2.2 H Calcium 8.9 Total Bilirubin 0.4 AST 30 ALT 33 Alkaline Phosphatase 73 Troponin I < 0.012 NT-Pro-B Natriuret Pep 36 Total Protein 7.6 Albumin 4.7 Globulin 2.9 Albumin/Globulin Ratio 1.6 Nasal Screen MRSA (PCR) 12/02/23 12/02/23 12/03/23 21:11 21:40 01:28 WBC RBC Hgb Hct MCV MCH MCHC RDW Plt Count Neut % (Auto) Lymph % (Auto) [place] % (Auto) Eos % (Auto) Baso % (Auto) Neut # (Auto) Lymph # (Auto) [place] # (Auto) Eos # (Auto) Baso # (Auto) PT INR VBG pH VBG pCO2 VBG pO2 VBG HCO3 VBG Total CO2 VBG O2 Saturation VBG Base Excess FiO2 Sodium Potassium Chloride Carbon Dioxide BUN Creatinine Estimated GFR BUN/Creatinine Ratio Glucose Lactate 3.8 H 3.6 H Calcium Total Bilirubin AST ALT Alkaline Phosphatase Troponin I NT-Pro-B Natriuret Pep Total Protein Albumin Globulin Albumin/Globulin Ratio Nasal Screen MRSA (PCR) Not detected 12/03/23 03:44 WBC 11.4 H RBC 4.74 Hgb 13.4 L Hct 39.2 L MCV 82.7 MCH 28.2 MCHC 34.1 RDW 14.0 Plt Count 294 Neut % (Auto) 87.0 H D Lymph % (Auto) 9.8 L D [place] % (Auto) 2.8 L Eos % (Auto) 0.2 L Baso % (Auto) 0.2 Neut # (Auto) 9900 H Lymph # (Auto) 1100 [place] # (Auto) 300 Eos # (Auto) 0 Baso # (Auto) 0 PT INR VBG pH VBG pCO2 VBG pO2 VBG HCO3 VBG Total CO2 VBG O2 Saturation VBG Base Excess FiO2 Sodium 137 Potassium 4.3 Chloride 107 Carbon Dioxide 22 BUN 15 Creatinine 0.67 Estimated GFR > 60 BUN/Creatinine Ratio 22.4 H Glucose 144 H Lactate 2.1 Calcium 8.7 Total Bilirubin AST ALT Alkaline Phosphatase Troponin I NT-Pro-B Natriuret Pep Total Protein Albumin Globulin Albumin/Globulin Ratio Nasal Screen MRSA (PCR) PFSH Social History Smoking Status: Former smoker Assessment & Plan Assessment & Plan narrative: 1. Asthma / Reactive Airway Disease with acute exacerbation - he was severely dyspneic on presentation requiring admission to ICU on BiPAP - initially both hypoxemic and hypercapnic - w/o evidence of PNA - Solumedrol, albuterol - prn O2, BiPAP 2. Pericarditis, present on admission and active. - w/o effusion on recent echocardiogram - resolved chest pain - continue colchicine PLAN: -continue steroids and bronchodilators. -wean off BiPAP, wean off O2. -out of bed, ambulate. FERNANDO: Time-Based Coding :: 25 min spent with patient and on the chart (including review of chart, obtaining history, exam, reviewing outside data, placing orders, documenting exam and treatment plan, and counseling patient) on 12/02. Quality VTE Deep Vein Thrombosis/Pulmonary Embolism Present on Admission: No
[2023-12-03] MEDS: ENOXAPARIN 40 MG/0.4 ML SYRINGE SUBCUT (08:36)
[2023-12-03] MEDS: COLCHICINE 0.6 MG TABLET PO (08:36)
[2023-12-03] MEDS: PANTOPRAZOLE 40 MG VIAL IV (08:36)
[2023-12-03] MEDS: ALBUTEROL/IPRATROPIUM 3 ML AMPUL INH (09:23)
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
== END 2023-12-03 11:10 | disposition home or self-care (01) ==
LOC: ED 19:31 → ICU 22:56 → AC 12-03 11:19 → ICU 12-03 11:19
PROVIDERS: Emergency Medicine; Admitting Provider Internal Medicine; Emergency Provider Emergency Medicine; Referring Provider Emergency Medicine; Visit Provider Internal Medicine
DX: J45.901 Unspecified asthma with (acute) exacerbation (principal); I30.9 Acute pericarditis, unspecified
CPT/HCPCS: 36415; 71045; 71275; 80048; 80053; 82805; 83605; 83880; 84484; 85025; 85610; 87797; 93005; 94150; 94640; 94660; 96365; 96372; 96375; 96376; 99284; 99291; G0378; J0136; J1650; J1885; J2470; J2919; J3475; J7613

== ENCOUNTER 2023-12-27 07:45 | Emergency (ER) | payer OTHER, SELFPAY ==
[2023-12-02 22:04] VITALS: BMI 28.5
[2023-12-02 22:18] VITALS: PULSE 108; RESP 10; O2SAT 95
[2023-12-27] VITALS (11 sets, daily range): BP systolic 126–144; BP diastolic 68–92; PULSE 90–121; RESP 12–24; TEMP 37; O2SAT 96–99; BMI 29.1
--- NOTE | 2023-12-27 07:58 | EKG_ITS ---
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
--- NOTE | 2023-12-27 08:00 | ED_ITS ---
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 He finds that as soon as he stops oral prednisone his symptoms recur. He has not on any inhaled steroids. He does have an appointment with code enforcement supervisor for an initial visit on February 01 through the [facility]. He states that he is coughing up yellow brownish sputum when he feels a ?rattle? in the left lower portion of his chest. Not complaining palpitations were overt chest pain. Is able to speak in 3-4 word sentences and is visibly dyspneic with speaking. Related Data Previous Rx's Medication Instructions Recorded colchicine 0.6 mg tablet 0.6 mg PO BID 3 months #180 tabs 11/24/23 albuterol sulfate 90 mcg/actuation 2 puff inhalation Q4-6H PRN 12/03/23 aerosol inhaler shortness of breath or wheezing #8.5 grams prednisone 20 mg tablet 40 mg (2 x 20 mg) PO DAILY #20 tabs 12/03/23 fluticasone 500 mcg-salmeterol 50 1 inh inhalation BID #60 ea 12/27/23 mcg/dose blistr powdr for inhalation (Advair Diskus) prednisone 10 mg tablet 40 mg (4 x 10 mg) PO DAILY #120 12/27/23 tabs Allergies Allergy/AdvReac Type Severity Reaction Status Date / Time No Known Drug Allergies Allergy Verified 11/22/23 11:37 Review of Systems Review of Systems Narrative: Pertinent positive and negative findings as per HPI Patient History Medical History (Updated 12/27/23 @ 08:46 by Jessica Lucero MD) Pericarditis RAD (reactive airway disease) Social History Smoking Status: Former smoker Smoking Status: Former smoker alcohol intake frequency: a few times a week Substance Use Type: does not use Exam Initial Vital Signs Initial Vital Signs: Vital Signs Pulse Rate 121 H 12/27/23 07:51 Blood Pressure 139/76 12/27/23 07:51 Pulse Oximetry 98 12/27/23 07:51 General: Healthy appearing, audible wheezing, appears uncomfortable, using abdominal muscles to help breathe but not having acute retractions. Able to cooperate with history. Well-nourished well-developed HEENT: Moist mucous membranes, normal sclera with reactive pupils, Neck: No JVD, supple Respiratory: Lungs diffuse wheeze in all lung alonso overall decreased air movement, no rhonchi appreciated Cardiac: Regular rate and rhythm no murmurs no bruits Abdomen: Soft, nontender, good bowel tones, no flank pain Skin: Warm and dry, no rashes Neurologic: Grossly neurologically intact with no obvious asymmetries or abnormalities Extremities: No trauma, well perfused, no lower extremity edema Psych: Cooperative, appropriate insight and affect Course Orders Ordered: Discontinued Medications Albuterol (Albuterol 2.5 Mg/3 Ml Neb (Adult)) 2.5 mg INH NOW ONE Stop: 12/27/23 09:54 Last Admin: 12/27/23 09:58 Dose: 2.5 mg Documented By: ANTOINETTE Albuterol/Ipratropium (Albuterol/Ipratropium 3 Ml Ampul) 3 ml INH NOW ONE Stop: 12/27/23 08:13 Last Admin: 12/27/23 08:20 Dose: 3 ml Documented By: ALENA Albuterol/Ipratropium (Albuterol/Ipratropium 3 Ml Ampul) 6 ml INH NOW ONE Stop: 12/27/23 08:18 Last Admin: 12/27/23 08:20 Dose: 6 ml Documented By: ALENA Sodium Chloride (Normal Saline 0.9%) 1,000 mls @ 1,000 mls/hr IV BOLUS ONE Stop: 12/27/23 09:16 Last Infusion: 12/27/23 09:48 Dose: Infused Documented By: Admin: 12/27/23 08:38 Dose: 1,000 mls/hr Documented By: ABRIL Magnesium Sulfate (Magnesium Sulfate) 2 gm in 50 mls @ 150 mls/hr IV NOW ONE Stop: 12/27/23 08:36 Last Infusion: 12/27/23 09:05 Dose: Infused Documented By: ABRIL Co-signed By: RAMANA Admin: 12/27/23 08:41 Dose: 150 mls/hr Documented By: ABRIL Co-signed By: RAMANA Methylprednisolone (Methylprednisolone 125 Mg/2 Ml Vial) 125 mg IV NOW ONE Stop: 12/27/23 08:18 Last Admin: 12/27/23 08:38 Dose: 125 mg Documented By: ABRIL Vital Signs Vital signs: Vital Signs - 8 hr 12/27/23 07:51 12/27/23 07:51 12/27/23 07:55 Temperature Pulse Rate 121 H 104 H Respiratory Rate 17 Blood Pressure 139/76 Pulse Oximetry 98 98 Oxygen Delivery Method Oxygen Flow Rate Fraction of Inspired Oxygen 12/27/23 08:00 12/27/23 08:00 12/27/23 08:00 Temperature 98.6 F Pulse Rate 116 H 98 H Respiratory Rate 24 16 Blood Pressure 139/76 136/78 Pulse Oximetry 99 96 Oxygen Delivery Method Room Air Oxygen Flow Rate Fraction of Inspired Oxygen 12/27/23 08:20 12/27/23 08:30 12/27/23 08:30 Temperature Pulse Rate 96 H 104 H Respiratory Rate 20 19 Blood Pressure 128/91 H Pulse Oximetry 97 99 Oxygen Delivery Method Room Air Room Air Oxygen Flow Rate Fraction of Inspired Oxygen 12/27/23 09:00 12/27/23 09:00 12/27/23 09:30 Temperature Pulse Rate 103 H 98 H Respiratory Rate 12 17 Blood Pressure 139/71 Pulse Oximetry 96 97 Oxygen Delivery Method Oxygen Flow Rate Fraction of Inspired Oxygen 12/27/23 09:31 12/27/23 09:31 12/27/23 09:58 Temperature Pulse Rate 96 H 90 Respiratory Rate 17 18 Blood Pressure 144/68 H Pulse Oximetry 97 97 Oxygen Delivery Method Room Air Oxygen Flow Rate 0 Fraction of Inspired Oxygen 21 Medical Decision Making Lab Data 12/27/23 07:57 12/27/23 07:57 Labs: Lab Results 12/27/23 12/27/23 Range/Units 07:57 08:18 WBC 5.9 (4.5-11.0) X10^3/uL RBC 5.09 (4.5-5.9) X10^6/uL Hgb 14.5 (13.5-17.5) g/dL Hct 42.4 (41-53) % MCV 83.4 (80-100) fL MCH 28.5 (26-34) PG MCHC 34.1 (30-36) % RDW 14.7 (11.6-14.8) % Plt Count 204 (150-400) X10^3/uL Neut % (Auto) 35.2 L (50-75) % Lymph % (Auto) 40.7 H (25-40) % [place] % (Auto) 14.0 (3-14) % Eos % (Auto) 9.3 H (2-4) % Baso % (Auto) 0.8 (0-2) % Neut # (Auto) 2100 (2897-9726) /uL Lymph # (Auto) 2400 (9494-7407) /uL [place] # (Auto) 800 (0-900) /uL Eos # (Auto) 500 H (0-450) /uL Baso # (Auto) 0 (0-100) /uL PT 9.6 (9.4-12.5) SECONDS INR 0.8 L (0.9-1.3) D-Dimer < 215 (<500) ng/ml Sodium 138 (137-145) mmol/L Potassium 4.0 (3.4-5.1) mmol/L Chloride 105 (98-107) mmol/L Carbon Dioxide 25 (22-32) mmol/L BUN 15 (9-20) mg/dL Creatinine 0.89 (0.66-1.25) mg/dL Estimated GFR > 60 (>60) mL/min BUN/Creatinine Ratio 16.9 (6-22) Glucose 104 H (70-100) mg/dL Lactate 1.1 (0.7-2.1) mmol/L Calcium 9.4 (8.4-10.2) mg/dL Total Bilirubin 0.5 (0.2-1.3) mg/dL AST 54 (17-59) IU/L ALT 94 H (<50) IU/L Alkaline Phosphatase 68 (38-126) U/L Troponin I < 0.012 (0.01-0.034) ng/mL NT-Pro-B Natriuret Pep < 20 (<125) pg/mL Total Protein 7.2 (6.3-8.2) g/dL Albumin 4.5 (3.5-5.0) g/dL Globulin 2.7 (1.7-4.1) g/dL Albumin/Globulin Ratio 1.7 (1.0-2.8) MDM Narrative Medical decision making narrative: CC: Acute shortness of breath Complicating co-morbidities: Recent, pneumonia, pericarditis, history of reactive airway disease that needs to be further defined with initial pulmonary consultation February 01 Data collected from: patient Medical records reviewed: Discharge summary from December 02 with recent admission for respiratory failure and pericarditis/myocarditis is reviewed. Most recent echocardiogram was : Interpretation Summary The ejection fraction is estimated to be 55-60%. Diastolic parameters suggest probable normal left ventricular diastolic function and normal filling pressures. The right ventricle is normal in size and function. The right ventricular systolic pressure is estimated to be at least 21 mmHg based on an estimated right atrial pressure of 3 mm Hg. No significant valvular abnormality. Patient states that he saw Cardiology last week at the [facility] underwent another echocardiogram and EKG and was told that his pericarditis has resolved. He has brief bit of colchicine left to complete his total course Differential considered: Asthma exacerbation, needing better baseline management for significant reactive airway disease, recurrent pericarditis, developing pneumonia Exam documented above, pertinent findings include: Moderate respiratory distress, 3-4 word sentences with significant wheeze and diminished air movement throughout no retractions. No lower extremity edema remainder of exam is benign Lab Test results independently reviewed as above. Pertinent findings: CBC is unremarkable Chemistries are reassuring BNP is not elevated Independently reviewed EKG: Sinus rhythm at a rate of 95. No acute ischemic changes appreciated Imaging studies independently reviewed: Chest x-ray is unremarkable. Slightly flattened diaphragms but not particularly hyperexpanded. No infiltrates and no cardiomegaly Treatments: Fluids, IV magnesium, DuoNeb, Solu-Medrol Re-evaluations: After medications have been administered 3 DuoNebs patient is able to speak in full sentences, better air movement but still significant wheeze. Albuterol nebulizer given just prior to discharge Discussion: 28-year-old gentleman with what likely is more troublesome reactive airway disease after significant environmental exposures a couple of years ago he does have an appointment with pulmonology coming up. Recent pericarditis and myocarditis. He notes that his breathing does much better when he is on prednisone and albuterol. Will have him do a long prednisone taper, he has given a prescription for an Advair Diskus, he has refills of his albuterol. At this point there is no sign of pericarditis, pneumonia, pneumothorax. Breathing is significantly improved with interventions in the emergency department. He understands recommendations and findings in his safe for discharge home Discharge Plan Departure Patient Disposition: Home Clinical Impression: Asthma exacerbation Qualifiers: Asthma severity: unspecified severity Asthma persistence: unspecified Qualified Code(s): J45.901 - Unspecified asthma with (acute) exacerbation Activity Restrictions/Additional Instructions: Thank you for coming in today Your clearly having acute asthma exacerbation without evidence of heart failure, pneumonia, pneumothorax or reason for hospitalization. To help better manage your asthma until you are seen by the code enforcement supervisor I am going to suggest that you add an Advair Diskus, this is the highest dose, 1 puff in the morning 1 puff in the evening. I have given you a [facility]. It does not need to be started immediately but sooner rather than later we will helpful in getting off the oral steroid I am going to place you on a long slow prednisone taper. Starting at 40 mg a day decreasing by 5 mg a week until further directed by the code enforcement supervisor. A prescription for prednisone has been transmitted to [facility] You can continue with usual activities as you are lungs allow. If you find that you are getting worse or develop any new symptoms, please feel free to return to the emergency department for further evaluation. Prescriptions: New fluticasone propion-salmeterol [Advair Diskus] 500-50 mcg/dose blister with device 1 inh inhalation BID Qty: 60 3RF prednisone 10 mg tablet 40 mg PO DAILY Qty: 120 0RF Rx Instructions: decrease by 5mg each week No Action prednisone 20 mg tablet 40 mg PO DAILY Qty: 20 0RF albuterol sulfate 90 mcg/actuation HFA aerosol inhaler 2 puff INHALATION Q4-6H PRN (Reason: shortness of breath or wheezing) Qty: 8.5 2RF colchicine 0.6 mg tablet 0.6 mg PO BID 90 Days Qty: 180 0RF Referrals: Miscellaneous,Doctor, MD [Primary Care Provider] - Stand Alone Forms: Patient Portal/API
--- NOTE | 2023-12-27 08:04 | DI.RAD.S_ITS ---
PROCEDURE: XR CHEST 1V INDICATIONS: Shortness of breath TECHNIQUE: One view of the chest was acquired. COMPARISON: [facility], CT, CT ANGIO CHEST PE PROTOCOL, 12/02/2023, 18:40. [facility], CR, XR CHEST 2V, 11/30/2023, 14:49. [facility], CR, XR CHEST 1V, 12/02/2023, 16:00. FINDINGS: Surgical changes and devices: None. Lungs and pleura: Lungs are clear. No pleural effusions or pneumothorax. Mediastinum: Mediastinal contours appear normal. Heart size is normal. Bones and chest wall: No suspicious bony lesions. Overlying soft tissues appear unremarkable. IMPRESSION: No portable chest. Dictated by: Wyatt Krause M.D. on 12/27/2023 at 7:20 Approved by: Wyatt Krause M.D. on 12/27/2023 at 7:21
[2023-12-27 08:09] LABS: Add Manual Diff / Slide Review NO; Basophils Absolute Auto 0 /uL (0-100); Basophils Percent Auto 0.8 % (0-2); Eosinophils Absolute Auto 500 /uL (0-450); Eosinophils Percent Auto 9.3 % (2-4); Hematocrit 42.4 % (41-53); Hemoglobin 14.5 g/dL (13.5-17.5); Lymphocytes Absolute Auto 2400 /uL (1100-4500); Lymphocytes Percent Auto 40.7 % (25-40); Mean Corpuscular HGB Conc 34.1 % (30-36); Mean Corpuscular Hemoglobin 28.5 PG (26-34); Mean Corpuscular Volume 83.4 fL (80-100); Monocytes Absolute Auto 800 /uL (0-900); Neutrophils Absolute Auto 2100 /uL (1500-7000); Neutrophils Percent Auto 35.2 % (50-75); Platelet Count 204 X10^3/uL (150-400); Red Blood Cell Count 5.09 X10^6/uL (4.5-5.9); Red Cell Distribution Width 14.7 % (11.6-14.8); White Blood Cell Count 5.9 X10^3/uL (4.5-11.0)
[2023-12-27] MEDS: ALBUTEROL/IPRATROPIUM 3 ML AMPUL 6 ML INH (08:20)
[2023-12-27] MEDS: ALBUTEROL/IPRATROPIUM 3 ML AMPUL INH (08:20)
[2023-12-27 08:23] LABS: INR 0.8 (0.9-1.3); Prothrombin Time 9.6 SECONDS (9.4-12.5)
[2023-12-27 08:27] LABS: Alanine Aminotransferase 94 IU/L (<50); Albumin 4.5 g/dL (3.5-5.0); Albumin Globulin Ratio 1.7 (1.0-2.8); Alkaline Phosphatase 68 U/L (38-126); Aspartate Aminotransferase 54 IU/L (17-59); BUN Creatinine Ratio 16.9 (6-22); Bilirubin Total 0.5 mg/dL (0.2-1.3); Blood Urea Nitrogen 15 mg/dL (9-20); Calcium 9.4 mg/dL (8.4-10.2); Carbon Dioxide 25 mmol/L (22-32); Chloride 105 mmol/L (98-107); Estimated Glomerular Filt Rate > 60 mL/min (>60); Globulin 2.7 g/dL (1.7-4.1); Glucose 104 mg/dL (70-100); HEMOLYSIS 15 (0-50); Lactate (Lactic Acid) 1.1 mmol/L (0.7-2.1); Sodium 138 mmol/L (137-145); Total Protein 7.2 g/dL (6.3-8.2)
[2023-12-27 08:36] LABS: NT-proBNP (BNP-Adult 18+) < 20 pg/mL (<125)
[2023-12-27] MEDS: SODIUM CHLORIDE 0.9% 1,000 ML 1000 ML IV (08:38)
[2023-12-27] MEDS: methylPREDNISolone 125 MG/2 ML VIAL IV (08:38)
[2023-12-27 08:40] LABS: Troponin I < 0.012 ng/mL (0.01-0.034)
[2023-12-27] MEDS: MAGNESIUM SULFATE 2 GM/50 ML PIGGYBACK IV (08:41)
[2023-12-27 08:42] LABS: D Dimer < 215 ng/ml (<500)
[2023-12-27] MEDS: ALBUTEROL 2.5 MG/3 ML NEB (ADULT) INH (09:58)
== END 2023-12-27 10:41 | disposition home or self-care (01) ==
PROVIDERS: Emergency Provider Emergency Medicine
DX: J45.901 Unspecified asthma with (acute) exacerbation (principal)
CPT/HCPCS: 36415; 71045; 80053; 83605; 83880; 84484; 85025; 85379; 85610; 93005; 94640; 96361; 96374; 99284; J2919; J3475; J7613